=== PATIENT | male | born 1990 | race Caucasian/White ===

== ENCOUNTER → 2016-09-19 | Outpatient (CLI) | payer BC, OTHER ==
--- NOTE | 2016-09-21 07:41 | SLEEPCENT ---
DATE OF PROCEDURE: 09/19/2016 ORDERED BY: JOSE Mullins Nocturnal polysomnography was performed for evaluation of sleep apnea syndrome symptoms in this patient with a history of excessive somnolence and nonrestorative sleep. 8 hours and 43 minutes of data were reviewed. There were 389 minutes of sleep identified. Sleep latency was prolonged at 76 minutes. Rapid eye movement (REM) latency was prolonged at 104 minutes. Sleep architecture showed fragmentation. 4 REM periods were appreciated. Overall sleep efficiency was 75.2%. The patient's electrocardiogram (EKG) showed a sinus rhythm with an average heart rate of 72 beats per minute. Rate variability was seen surrounding respiratory events. Rate ranged 58-102. Electroencephalogram (EEG) showed normal waveforms for awake and sleep. There were 393 respiratory events identified of 10 seconds in duration or greater for an apnea hypopnea index of 60.6. The events were primarily obstructive, but 49 central and 14 mixed apneas were also identified. Events were not exclusive to sleep stage nor body posture. Arousals from respiratory events occurred 26 times per hour and oxygen desaturations were seen into the 70s. Remaining measures of sleep physiology were reasonably normal. IMPRESSION: Severe obstructive sleep apnea syndrome (G47.33). Apnea hypopnea index 60.6. RECOMMENDATION: The patient should be encouraged to return to the sleep disorder center for pressure therapy. In the interim, alcohol and sedative avoidance should be practiced and caution exercised during the operation of motor vehicles.
== END ==
LOC: M SLEEP 19:42
PROVIDERS: ATTEND Nurse Practitioner Adult Health
DX: G47.33 Obstructive sleep apnea (adult) (pediatric) (principal)

== ENCOUNTER → 2018-07-24 | Outpatient (REF) | payer OTHER ==
[2018-07-24 12:52] LABS: INFLUENZA A AMPLIFICATION POSITIVE (NEGATIVE); INFLUENZA B AMPLIFICATION NEGATIVE (NEGATIVE)
== END ==
LOC: M LAB REF 11:33
PROVIDERS: ATTEND Physician Assistant
DX: J11.1 Influenza due to unidentified influenza virus with other respiratory manifestations (principal)

== ENCOUNTER 2019-03-08 01:32 | Emergency (ER) | payer BC, OTHER ==
[~2019-03-08] VITALS: Ht 170.2 cm; Wt 84.1 kg
[2019-03-08] MEDS ORDERED: OMEP-221 (01:41)
[2019-03-08 02:32] LABS: BASO % 0.5 % (0.0-1.0); EOS # 0.1 10^3/uL (0.0-0.5); EOS % 1.8 % (0.0-3.0); HEMATOCRIT 44.6 % (42.0-52.0); HEMOGLOBIN 16.3 g/dl (13.5-17.5); LYMPH # 1.8 10^3/uL (1.5-5.0); LYMPH % 23.6 % (24.0-44.0); MEAN CORPUSCULAR HEMOGLOBIN 32.5 pg (27.0-33.0); MEAN CORPUSCULAR HGB CONC 36.5 g/dl (32.0-36.5); MEAN CORPUSCULAR VOLUME 88.8 fl (80.0-96.0); MONO # 0.9 10^3/uL (0.0-0.8); MONO % 11.8 % (0.0-5.0); NEUTROPHILS # 4.7 10^3/uL (1.5-8.5); NEUTROPHILS % 61.6 % (36.0-66.0); PLATELET COUNT, AUTOMATED 251 10^3/uL (150-450); RED BLOOD COUNT 5.02 10^6/uL (4.30-6.10); WHITE BLOOD COUNT 7.6 10^3/uL (4.0-10.0)
[2019-03-08] MEDS ORDERED: AMPICILLIN SOD/SULBACTAM SOD 3 GM in D5W MINI-BAG PLUS 100 ML IV ONE (02:45)
[2019-03-08] MEDS ORDERED: AUGM500T34 PO (02:47)
[2019-03-08 02:54] LABS: BLOOD UREA NITROGEN 8 MG/DL (7-18); C REACTIVE PROTEIN QUANTITATIV 1.72 MG/DL (0.00-0.30); CALCIUM LEVEL 8.4 MG/DL (8.5-10.1); CARBON DIOXIDE LEVEL 28 MEQ/L (21-32); CHLORIDE LEVEL 103 MEQ/L (98-107); CREATININE FOR GFR 1.03 MG/DL (0.70-1.30); GLOMERULAR FILTRATION RATE > 60.0 (>60); GLUCOSE, FASTING 170 MG/DL (70-100); POTASSIUM SERUM 4.7 MEQ/L (3.5-5.1); SODIUM LEVEL 137 MEQ/L (136-145)
[2019-03-08 03:14] VITALS: BP 130/88
[2019-03-08 04:42] LABS: ERYTHROCYTE SEDIMENTATION RATE 25 mm/hr (0-15)
== END 2019-03-08 03:25 | disposition home or self-care (01) ==
LOC: M ED 01:32
DX: L08.9 Local infection of the skin and subcutaneous tissue, unspecified (principal); Z79.899 Other long term (current) drug therapy

== ENCOUNTER → 2020-02-18 | Outpatient (CLI) | payer BC, OTHER ==
[~2020-02-18] MED LIST: AUGM500T34 PO; OMEP-221
--- NOTE | 2020-03-24 09:39 | REP ---
RIGHT UPPER QUADRANT SONOGRAM HISTORY: Epigastric pain. COMPARISON: Sonography 01/12/2014. FINDINGS: Scanning through the right upper quadrant of the abdomen demonstrates increased echogenic throughout the liver diffusely consistent with fatty infiltration. No focal liver lesion is seen. The liver does not appear to be enlarged. There is a large shadowing gallstone in the gallbladder lumen. The gallstone measures up to 2.1 cm in diameter. Common bile duct is normal measuring 0.4 cm in greatest diameter. There is no evidence of ascites. There is a 1 cm cyst in the right lateral mid kidney. Right renal dimensions are 10.3 x 6.6 x 5.9 cm. No other right renal abnormality. IMPRESSION: * Cholelithiasis. * Fatty infiltration of the liver. * Tiny cyst in the right kidney. MTDD
== END ==
LOC: M RAD 07:20
PROVIDERS: ATTEND Surgery
DX: K80.20 Calculus of gallbladder without cholecystitis without obstruction (principal); K76.0 Fatty (change of) liver, not elsewhere classified; N28.1 Cyst of kidney, acquired

== ENCOUNTER → 2020-07-30 | Outpatient (CLI) | payer BC, OTHER ==
[~2020-07-30] MED LIST changes: +OMEP-218 PO
== END ==
LOC: M LABSMTC 08:24
PROVIDERS: ATTEND Anesthesiology
DX: Z01.812 Encounter for preprocedural laboratory examination (principal); Z20.822 Contact with and (suspected) exposure to COVID-19

== ENCOUNTER 2020-08-04 11:47 | Day surgery (SDC) | payer BC, OTHER ==
[~2020-08-04] VITALS: Ht 170.2 cm; Wt 89.3 kg
[~2020-08-04 11:47] MED LIST changes: +ACETAMINOPHEN 1000MG 100ML IV BTL (OFIRMEV) (J0131 PER 10MG) As Ordered ONE; +KETOROLAC 60MG 2ML VIAL As Ordered ONE; +LIDOCAINE 2% 100MG/5ML SDV (FOR ANES.) As Ordered ONE; +LR 1,000 ML IV ONE; +MIDAZOLAM INJ 2MG/2ML VIAL (J2250 PER 1MG) As Ordered ONE; +ONDANSETRON 4MG/2ML VIAL As Ordered ONE; +ROCURONIUM BROMIDE 50 MG/5 ML VIAL As Ordered ONE; +SUGAMMADEX SODIUM 500 MG/5 ML VIAL (BRIDION) As Ordered ONE; +dexameTHASONE 4 MG/ML 1ML VIAL (J1100 PER 1MG) As Ordered ONE; +fentaNYL 100 MCG/2 ML INJECTION (J3010) As Ordered ONE; +propofoL 200 MG/20 ML VIAL As Ordered ONE
[2020-08-04] MEDS ORDERED: LABETALOL 100MG/20ML VIAL As Ordered ONE (12:46)
[2020-08-04] MEDS ORDERED: BUPIVACAINE HCL 0.25% 30ML VIAL As Ordered ONE (14:44)
[2020-08-04] MEDS ORDERED: fentaNYL 100 MCG/2 ML INJECTION (J3010) As Ordered ONE ×2 (15:31→15:59)
[2020-08-04] MEDS ORDERED: oxyCODONE 5MG TAB As Ordered ONE (17:05)
[2020-08-04] MEDS ORDERED: HYDR-4571 PO (17:11)
[2020-08-04] MEDS ORDERED: fentaNYL 100 MCG/2 ML INJECTION (J3010) IV PRN (18:00)
[2020-08-04] MEDS ORDERED: HYDROMORPHONE HCL 0.5 MG/ 0.5 ML SYRINGE (J1170 PER 1) IV PRN (18:00)
[2020-08-04] MEDS ORDERED: NORCO, ANEXSIA 5/325MG TABLET (HYDROcodone/ACETAMINOPHEN) PO PRN (18:00)
[2020-08-04] MEDS ORDERED: ACETAMINOPHEN TAB 650MG DOSE (2X325MG) PO PRN (18:00)
[2020-08-04] MEDS ORDERED: LR 1,000 ML IV SCH (18:00)
[2020-08-04] MEDS ORDERED: ONDANSETRON 4MG/2ML VIAL IV PRN (18:00)
[2020-08-04] MEDS ORDERED: oxyCODONE 5MG TAB PO PRN (18:00)
[2020-08-04] MEDS ORDERED: IBUPROFEN 600MG TAB PO PRN (18:00)
[2020-08-04] MEDS ORDERED: SIMETHICONE 80 MG CHEW TAB PO ONE (19:30)
[2020-08-04] MEDS ORDERED: SIMETHICONE 80 MG CHEW TAB As Ordered ONE (19:34)
[2020-08-04 19:48] VITALS: BP 156/95
--- NOTE | 2020-08-05 12:20 | RO ---
OPERATIVE NOTE DATE OF OPERATION: 08/04/2020 PREOPERATIVE DIAGNOSIS: Symptomatic gallstones. POSTOPERATIVE DIAGNOSIS: Symptomatic gallstones. PROCEDURE PERFORMED: Robotic assisted laparoscopic cholecystectomy. SURGEON: Evan Smith M.D. ANESTHESIA: General. INDICATIONS FOR THE PROCEDURE: The patient is a 29-year-old man who had suffered an attck of fairly severe upper abdominal pain and evaluation revealed gallstones. He is now for a robotic assisted laparoscopic cholecystectomy. OPERATIVE PROCEDURE: The patient was brought to the operating room and placed on the table in a supine position. He was placed under general endotracheal anesthesia. The patient's abdomen was prepped and draped in a sterile fashion. 25% Marcaine was infiltrated at each of the trocar sites as needed. A short transverse incision was made in the left upper quadrant and Veress needle was inserted. After positive hanging drop test, the abdomen was infiltrated with carbon dioxide gas. An 8 mm VisiPort was placed over the scope and advanced to the abdominal wall without difficulty. Initial inspection showed normal appearing liver. The fundus of the gallbladder was seen and was not acutely inflamed. Three additional 8 mm ports were placed across the abdomen. The second was just above the umbilicus and the 3rd and 4th were in the right lower mid abdomen and right lateral lower abdomen. The patient was tilted to an approximately 10 to 15 degree reverse Trendelenburg position and rolled slightly to the left. The patient cart of [employer] XI robot was brought into position and docked to the endoscope port, which was the supraumbilical port. Targeting took place in the subhepatic space and the additional arms were then docked. A hook cautery was placed in the left upper quadrant with a fenestrated bipolar and grasping retractor in the right lower abdomen. I then moved to the control console to proceed with the operation. The gallbladder was grasped and elevated. Dissection was begun at the gallbladder neck. The peritoneum was scored and the fibrofatty tissues were carefully dissected away. A small vascular branch appeared to come up at the free edge of the dissection. The cystic duct was clearly identified and the cholecystic artery was also clearly identified. All three structures were then clipped with hemoclips and divided using the hook cautery. The gallbladder was then dissected free from the gallbladder using the hook cautery. The gallbladder was not perforated in the course of dissection. The gallbladder was placed on an Endopouch. The subhepatic space was inspected and there was no evidence of any bleeding or bile leak. I then returned to the operating table. The patient was returned to a flat position. The abdomen was deflated and the trocars were removed. The specimen retrieval bag was recovered through the supraumbilical site. It was necessary to extend the fascial incision slightly as he had a larger stone in the fundus of the gallbladder. The gallbladder was sent for permanent pathology. The fascia was closed with interrupted simple sutures of 2-0 Vicryl. The skin incisions were all closed with buried 4-0 Vicryl and Steri-Strips. Light dressings were applied. The patient tolerated the procedure well without apparent complication. He was awakened in the operating room, extubated and moved to the recovery room in stable condition.
== END 2020-08-04 19:48 | disposition home or self-care (01) ==
LOC: M SDC 11:47
PROVIDERS: ATTEND Surgery
DX: K80.10 Calculus of gallbladder with chronic cholecystitis without obstruction (principal); K21.9 Gastro-esophageal reflux disease without esophagitis; G47.30 Sleep apnea, unspecified; Z79.899 Other long term (current) drug therapy
CPT/HCPCS: 47562; 88304; J0131; J1100; J1885; J2250; J2405; J3010; S2900

== ENCOUNTER → 2020-09-28 | Outpatient (REF) | payer OTHER ==
[~2020-09-28] MED LIST changes: -ACETAMINOPHEN 1000MG 100ML IV BTL (OFIRMEV) (J0131 PER 10MG) As Ordered ONE; +HYDR-4571 PO; -KETOROLAC 60MG 2ML VIAL As Ordered ONE; -LIDOCAINE 2% 100MG/5ML SDV (FOR ANES.) As Ordered ONE; -LR 1,000 ML IV ONE; -MIDAZOLAM INJ 2MG/2ML VIAL (J2250 PER 1MG) As Ordered ONE; -ONDANSETRON 4MG/2ML VIAL As Ordered ONE; -ROCURONIUM BROMIDE 50 MG/5 ML VIAL As Ordered ONE; -SUGAMMADEX SODIUM 500 MG/5 ML VIAL (BRIDION) As Ordered ONE; -dexameTHASONE 4 MG/ML 1ML VIAL (J1100 PER 1MG) As Ordered ONE; -fentaNYL 100 MCG/2 ML INJECTION (J3010) As Ordered ONE; -propofoL 200 MG/20 ML VIAL As Ordered ONE
[2020-09-28 14:46] LABS: HEMOGLOBIN A1c 5.8 %
[2020-09-28 14:57] LABS: ALBUMIN 4.4 GM/DL (3.2-5.2); ALT/SGPT 98 U/L (12-78); BILIRUBIN,TOTAL 0.6 MG/DL (0.2-1.0); BLOOD UREA NITROGEN 15 MG/DL (7-18); CALCIUM LEVEL 9.9 MG/DL (8.5-10.1); CARBON DIOXIDE LEVEL 31 MEQ/L (21-32); CHLORIDE LEVEL 103 MEQ/L (98-107); CHOLESTEROL LEVEL 287 MG/DL (<200); CHOLESTEROL RISK RATIO 7.756 (<5); CREATININE FOR GFR 1.06 MG/DL (0.70-1.30); FREE T4 1.24 NG/DL (0.76-1.46); GLOMERULAR FILTRATION RATE > 60.0 (>60); GLUCOSE, FASTING 126 MG/DL (70-100); HDL CHOLESTEROL 37 MG/DL (>40); NON-HDL-C 250 MG/DL; POTASSIUM SERUM 4.8 MEQ/L (3.5-5.1); SODIUM LEVEL 138 MEQ/L (136-145); THYROID STIMULATING HORMONE 0.827 uIU/ML (0.358-3.740); TOTAL PROTEIN 7.8 GM/DL (6.4-8.2); TRIGLYCERIDES LEVEL 750 MG/DL (<150)
[2020-09-28 15:11] LABS: MALB URINE SIEMENS 21.7 MG/L; MAU/CREAT RATIO 5.4 MCG/MG (0.0-30.0)
[2020-09-28 15:53] LABS: PTH INTACT 112.2 PG/ML (18.5-88.0)
[2020-09-28 16:11] LABS: TOTAL 25(OH) VITAMIN D 7.7 NG/ML (30.0-100.0)
== END ==
LOC: M SFHCPLAZ 11:11
PROVIDERS: ATTEND Family Medicine
DX: K76.0 Fatty (change of) liver, not elsewhere classified (principal); E66.9 Obesity, unspecified

== ENCOUNTER → 2020-11-17 | Outpatient (REF) | payer OTHER ==
[2020-11-17 14:16] LABS: ALBUMIN 4.5 GM/DL (3.2-5.2); ALT/SGPT 121 U/L (12-78); BILIRUBIN,TOTAL 0.5 MG/DL (0.2-1.0); BLOOD UREA NITROGEN 15 MG/DL (7-18); CALCIUM LEVEL 9.8 MG/DL (8.5-10.1); CARBON DIOXIDE LEVEL 29 MEQ/L (21-32); CHLORIDE LEVEL 105 MEQ/L (98-107); CHOLESTEROL LEVEL 161 MG/DL (<200); CHOLESTEROL RISK RATIO 3.833 (<5); CPK CREATINE PHOSPHOKINASE 205 U/L (39-308); CREATININE FOR GFR 0.93 MG/DL (0.70-1.30); GLOMERULAR FILTRATION RATE > 60.0 (>60); GLUCOSE, FASTING 133 MG/DL (70-100); HDL CHOLESTEROL 42 MG/DL (>40); NON-HDL-C 119 MG/DL; POTASSIUM SERUM 4.5 MEQ/L (3.5-5.1); PTH INTACT 69.6 PG/ML (18.5-88.0); SODIUM LEVEL 141 MEQ/L (136-145); TOTAL 25(OH) VITAMIN D 17.2 NG/ML (30.0-100.0); TOTAL PROTEIN 7.6 GM/DL (6.4-8.2); TRIGLYCERIDES LEVEL 403 MG/DL (<150)
[2020-11-17 14:20] LABS: MALB URINE SIEMENS 12.3 MG/L; MAU/CREAT RATIO 5.3 MCG/MG (0.0-30.0)
[2020-11-17 14:24] LABS: HEPATITIS B SURFACE ANTIGEN NEGATIVE (NEGATIVE)
[2020-11-19 02:07] LABS: INSULIN LEVEL 38.9 uIU/mL (2.6-24.9)
== END ==
LOC: M PLALAB 09:41
PROVIDERS: ATTEND Family Medicine
DX: K76.0 Fatty (change of) liver, not elsewhere classified (principal); E55.9 Vitamin D deficiency, unspecified; R73.01 Impaired fasting glucose; E78.2 Mixed hyperlipidemia

== ENCOUNTER → 2021-03-24 | Outpatient (CLI) | payer BC, OTHER ==
[2021-03-24 13:40] LABS: ALBUMIN 4.6 GM/DL (3.2-5.2); ALT/SGPT 131 U/L (12-78); BILIRUBIN,TOTAL 0.5 MG/DL (0.2-1.0); BLOOD UREA NITROGEN 10 MG/DL (7-18); CALCIUM LEVEL 9.9 MG/DL (8.5-10.1); CARBON DIOXIDE LEVEL 30 MEQ/L (21-32); CHLORIDE LEVEL 105 MEQ/L (98-107); CHOLESTEROL LEVEL 139 MG/DL (<200); CHOLESTEROL RISK RATIO 3.475 (<5); CPK CREATINE PHOSPHOKINASE 150 U/L (39-308); CREATININE FOR GFR 0.99 MG/DL (0.70-1.30); FERRITIN 395 NG/ML (26-388); GLOMERULAR FILTRATION RATE > 60.0 (>60); GLUCOSE, FASTING 120 MG/DL (70-100); HDL CHOLESTEROL 40 MG/DL (>40); IRON (FE) 95 UG/DL (65-175); LDL CHOLESTEROL 32 MG/DL (<100); NON-HDL-C 99 MG/DL; PERCENT SATURATION 22.8 % (19.7-50.0); PHOSPHORUS LEVEL 3.2 MG/DL (2.5-4.9); POTASSIUM SERUM 4.6 MEQ/L (3.5-5.1); SODIUM LEVEL 140 MEQ/L (136-145); TOTAL IRON BINDING CAPACITY 417 UG/DL (250-450); TOTAL PROTEIN 8.1 GM/DL (6.4-8.2); TRIGLYCERIDES LEVEL 336 MG/DL (<150)
[2021-03-24 13:43] LABS: PTH INTACT 83.2 PG/ML (18.5-88.0)
[2021-03-24 13:55] LABS: MALB URINE SIEMENS 18.7 MG/L; MAU/CREAT RATIO 7.4 MCG/MG (0.0-30.0)
[2021-03-24 14:00] LABS: HEMOGLOBIN A1c 5.9 %
[2021-03-25 20:12] LABS: ANA (HEP2) Negative (.); ANTI-MITOCHONDRIAL ANTIBODY <20.0 Units (0.0-20.0)
== END ==
LOC: M PLALAB 09:59
PROVIDERS: ATTEND Family Medicine
DX: E78.2 Mixed hyperlipidemia (principal)